=== PATIENT | male | born 1945 | race Caucasian/White ===

== ENCOUNTER 2016-04-14 07:50 | Emergency (ER) | payer MEDICARE ==
[~2016-04-14] VITALS: Ht 180.3 cm; Wt 65.0 kg
[~2016-04-14 07:50] MED LIST: CEFD300C PO; LORTA5 PO; OXYBXL5 PO; PRED10 PO; PROS5TAB2 PO; TAMS0.4C67 PO
--- NOTE | 2016-04-14 07:59 | PD ---
HPI Chief Complaint: shortness of breath Time Seen by Provider: 07:53 Travel History International Travel<30 days: No Contact w/Intl Traveler<30days: No Traveled to known affect area: No History of Present Illness HPI 71-year-old male complains of shortness of breath. Patient has history of COPD. Patient has been using albuterol nebulizer, albuterol inhaler and Brio at home. Patient states that he has chronic productive cough and is not new. Patient has increasing shortness of breath since this morning. Patient denies any fever chills. Patient denies any chest pain. Patient's energy conservation specialist Dr. Jaramillo. Patient has appointment with energy conservation specialist today. Patient denies any headache. Patient denies any chest pain. patient denies abdominal pain. Patient denies any nausea vomiting diarrhea. Patient arrived by EMS. PFS Past Medical History Hx Anticoagulant Therapy: No COPD: Yes Diabetes: No Diminished Hearing: No Genitourinary: Yes (ENLARGED PROSTATE ) Respiratory: Yes Immunizations Current: Yes Past Surgical History Joint Replacement: Yes (RIGHT HIP) Social History Alcohol Use: No (DENIES) Tobacco Use: Yes (0.5 ppd) Substance Use: No Allergies-Medications (Allergen,Severity, Reaction): Coded Allergies: No Known Allergies (Verified , 04/14/16) Reported Meds & Prescriptions Reported Meds & Active Scripts Active Reported Tylenol Extra Strength (Acetaminophen) 500 Mg Tab 500 Mg PO Q4-6H PRN Proair Hfa 8.5 GM Inh (Albuterol Sulfate) 90 Mcg/Act Aer 2 Puff INH Q4-6H PRN 108 mcg/actuation Breo Ellipta Inh (Fluticasone/Vilanterol) 200-25 Mcg/Act Inh 1 Puff INH DAILY Use daily at the same time. Flomax (Tamsulosin HCl) 0.4 Mg Cap 0.4 Mg PO HS Review of Systems General / Constitutional: No: Fever Eyes: No: Visual changes HENT: No: Headaches Cardiovascular: No: Chest Pain or Discomfort Respiratory: Positive: Cough, Shortness of Breath Gastrointestinal: No: Abdominal Pain Genitourinary: No: Dysuria Musculoskeletal: No: Pain Skin: No Rash Neurologic: No: Weakness Psychiatric: No: Depression Endocrine: No: Polydipsia Hematologic/Lymphatic: No: Easy Bruising Physical Exam Narrative GENERAL: Well-nourished, well-developed patient. SKIN: Warm and dry. HEAD: Normocephalic. EYES: No scleral icterus. No injection or drainage. NECK: Supple, trachea midline. No JVD or lymphadenopathy. CARDIOVASCULAR: Regular rate and rhythm without murmurs, gallops, or rubs. RESPIRATORY: Breath sounds equal bilaterally. No accessory muscle use. Patient has mild diffuse rhonchi. No wheezes. GASTROINTESTINAL: Abdomen soft, non-tender, nondistended. MUSCULOSKELETAL: No cyanosis, or edema. BACK: Nontender without obvious deformity. No CVA tenderness. Neurologic exam normal. Data Data Last Documented VS Vital Signs Date Time Temp Pulse Resp B/P Pulse Ox O2 Delivery O2 Flow Rate FiO2 04/14/16 08:09 95 Nasal Cannula 3 04/14/16 08:09 18 04/14/16 08:09 90 04/14/16 08:06 98.7 126/84 Orders Complete Blood Count With Diff (04/14/16 07:53) Comprehensive Metabolic Panel (04/14/16 07:53) B-Type Natriuretic Peptide (04/14/16 07:53) Arterial Blood Gas (Abg) (04/14/16 07:53) Iv Access Insert/Monitor (04/14/16 07:53) Electrocardiogram (04/14/16 07:53) Ecg Monitoring (04/14/16 07:53) Oximetry (04/14/16 07:53) Oxygen Administration (04/14/16 07:53) Chest, Single Ap (04/14/16 07:53) Sodium Chloride 0.9% Flush (Ns Flush) (04/14/16 08:00) Methylprednisolone So Succ Inj (Solumedr (04/14/16 08:00) Albuterol-Ipratropium Neb (Duoneb Neb) (04/14/16 08:00) Levofloxacin (Levaquin) (04/14/16 09:30) Labs Laboratory Tests Test 04/14/16 04/14/16 08:19 08:48 White Blood Count 10.2 TH/MM3 Red Blood Count 5.12 MIL/MM3 Hemoglobin 15.3 GM/DL Hematocrit 44.9 % Mean Corpuscular Volume 87.8 FL Mean Corpuscular Hemoglobin 29.9 PG Mean Corpuscular Hemoglobin 34.0 % Concent Red Cell Distribution Width 15.6 % Platelet Count 205 TH/MM3 Mean Platelet Volume 8.4 FL Neutrophils (%) (Auto) 84.7 % Lymphocytes (%) (Auto) 6.3 % Monocytes (%) (Auto) 7.3 % Eosinophils (%) (Auto) 1.2 % Basophils (%) (Auto) 0.5 % Neutrophils # (Auto) 8.6 TH/MM3 Lymphocytes # (Auto) 0.6 TH/MM3 Monocytes # (Auto) 0.7 TH/MM3 Eosinophils # (Auto) 0.1 TH/MM3 Basophils # (Auto) 0.1 TH/MM3 CBC Comment DIFF FINAL Differential Comment Sodium Level 139 MEQ/L Potassium Level 3.8 MEQ/L Chloride Level 105 MEQ/L Carbon Dioxide Level 28.9 MEQ/L Anion Gap 5 MEQ/L Blood Urea Nitrogen 24 MG/DL Creatinine 0.85 MG/DL Estimat Glomerular Filtration 89 ML/MIN Rate Random Glucose 86 MG/DL Calcium Level 8.4 MG/DL Total Bilirubin 0.4 MG/DL Aspartate Amino Transf 17 U/L (AST/SGOT) Alanine Aminotransferase 28 U/L (ALT/SGPT) Alkaline Phosphatase 66 U/L B-Type Natriuretic Peptide 12 PG/ML Total Protein 6.1 GM/DL Albumin 3.1 GM/DL Blood Gas Puncture Site RT RADIAL Blood Gas Patient Temperature 98.6 Blood Gas HCO3 26 mmol/L Blood Gas Base Excess 1.9 mmol/L Blood Gas Oxygen Saturation 93 % Arterial Blood pH 7.44 Arterial Blood Partial 39 mmHg Pressure CO2 Arterial Blood Partial 109 mmHG Pressure O2 Arterial Blood Oxygen Content 20.6 Vol % Arterial Blood 3.7 % Carboxyhemoglobin Arterial Blood Methemoglobin 2.1 % Blood Gas Hemoglobin 15.7 G/DL Oxygen Delivery Device NASAL CANNULA Blood Gas Liter Flow 2 L/M [facility] Medical Decision Making Medical Screen Exam Complete: Yes Emergency Medical Condition: Yes Interpretation(s) 8:53 AM. Chest x-ray shows hyperinflation with minimal right basilar density could be atelectasis or minimal infiltrate. CBC with WBC of 10.2. 84 neutrophil. 9:22 AM. ABG on 2 L nasal cannula, pH 7.44. PCO2 39. PO2 109. BUN 24. BNP 12. Differential Diagnosis Differential diagnosis including acute exacerbation COPD, bronchitis, pneumonia , PE, pneumothorax. Narrative Course 71-year-old male with shortness of breath. History of COPD. Albuterol with Atrovent unit dose treatment times one. Solu-Medrol 125 mg IV. Levaquin 750 mg by mouth given. Diagnosis Primary Impression: COPD with acute exacerbation Patient Instructions: General Instructions Additional Instructions: Continue with albuterol nebulizer treatment at home. Take medications as directed. Follow-up with energy conservation specialist this afternoon. Return if worse. Med/Other Pt SpecificInfo: Prescription(s) given Scripts Levofloxacin (Levaquin)750 Mg [id number] Mg PO DAILY #7 TAB Ref 0 Prov:Alvaro Peck MD 04/14/16 Prednisone 20 Mg Tab20 Mg PO BID #10 TAB Prov:Alvaro Peck MD 04/14/16 Disposition: 01 DISCHARGE HOME Condition: Stable Avlaro Peck MD Apr 14, 2016 07:59
[2016-04-14] MEDS ORDERED: SODIUM CHLORIDE 0.9% FLUSH 5 ML FLUSH IVF PRN (08:00)
[2016-04-14] MEDS ORDERED: RESP: ALBUTEROL 2.5 MG/IPRATROPIUM 0.5 MG NEB (SCH) INH ONE (08:00)
[2016-04-14] MEDS ORDERED: methylPREDNISolone SOD SUCC 125 MG/2 ML VIAL IVP ONE (08:00)
[2016-04-14 08:06] VITALS: BP 126/84; PULSE 90; RESP 18; TEMP 98.7; O2SAT 95
[2016-04-14 08:09] VITALS: RESP 18; O2SAT 95
--- NOTE | 2016-04-14 08:12 | RADRPT ---
EXAM DATE/TIME: 04/14/2016 07:53 [place] COMPARISON: No previous studies available for comparison. INDICATIONS : Short of breath. MEDICAL HISTORY : Chronic obstructive pulmonary disease. SURGICAL HISTORY : None. ENCOUNTER: Initial ACUITY: 1 day PAIN SCORE: 0/10 LOCATION: Bilateral chest FINDINGS: A single view of the chest demonstrates the lungs to be hyperaerated with minimal density right lower lobe. Left lung clear. The cardiomediastinal contours are unremarkable. Scoliosis of the spine. CONCLUSION: Hyperinflation with minimal right basilar density could be atelectasis or minimal infiltrate. Say Dooley MD on April 14, 2016 at 8:09 Board Certified Radiologist. This report was verified electronically.
[2016-04-14] MEDS ORDERED: TAMS5CAP PO (08:16)
[2016-04-14] MEDS ORDERED: ACET-703 PO (08:18)
[2016-04-14] MEDS ORDERED: FLUT1INH7 INH (08:18)
[2016-04-14] MEDS ORDERED: ALBUAER3 INH (08:18)
[2016-04-14 08:40] LABS: AUTOMATED NEUTROPHIL # 8.6 TH/MM3 (1.8-7.7); BASOPHIL # 0.1 TH/MM3 (0-0.2); BASOPHIL % 0.5 % (0.0-2.0); EOSINOPHIL # 0.1 TH/MM3 (0-0.4); EOSINOPHIL % 1.2 % (0.0-4.0); HEMATOCRIT 44.9 % (39.0-51.0); HEMO FLAGS DIFF FINAL; LYMPH % 6.3 % (9.0-44.0); LYMPHOCYTE # 0.6 TH/MM3 (1.0-4.8); MEAN CELL VOLUME 87.8 FL (80.0-100.0); MEAN CORPUSCULAR HEMOGLOBIN 29.9 PG (27.0-34.0); MONO % 7.3 % (0.0-8.0); NEUT % 84.7 % (16.0-70.0); PLATELET COUNT 205 TH/MM3 (150-450); RED BLOOD COUNT 5.12 MIL/MM3 (4.50-5.90); RED CELL DISTRIBUTION WIDTH 15.6 % (11.6-17.2); WHITE BLOOD COUNT 10.2 TH/MM3 (4.0-11.0)
[2016-04-14 08:58] LABS: BLOOD GAS BASE EXCESS 1.9 mmol/L (-2-2); BLOOD GAS CARBOXYHEMOGLOBIN 3.7 % (0-4); BLOOD GAS HCO3 26 mmol/L (22-26); BLOOD GAS METHEMOGLOBIN 2.1 % (0-2); BLOOD GAS O2 HGB SATURATION 93 % (90-100); BLOOD GAS OXYGEN CONTENT 20.6 Vol % (12.0-20.0); BLOOD GAS PCO2 39 mmHg (38-42); BLOOD GAS PO2 109 mmHG (61-120); BLOOD GAS TOTAL HGB 15.7 G/DL (12.0-16.0); TEMP CORR TO 98.6
[2016-04-14 08:59] LABS: CRITICAL VALUE NO; DRAW SITE RT RADIAL; LITER FLOW 2 L/M; NUMBER OF ARTERIAL PUNCTURES 1; OXYGEN DEVICE NASAL CANNULA; STAT YES
[2016-04-14 09:00] LABS: ALKALINE PHOSPHATASE 66 U/L (45-117); TOTAL BILIRUBIN ADULT 0.4 MG/DL (0.2-1.0)
[2016-04-14 09:11] LABS: ALT (GPT) 28 U/L (12-78); ANION GAP 5 MEQ/L (5-15); AST (GOT) 17 U/L (15-37); BICARBONATE 28.9 MEQ/L (21.0-32.0); CHLORIDE 105 MEQ/L (98-107); GLOMERULAR FILTRATION RATE 89 ML/MIN (>89); POTASSIUM 3.8 MEQ/L (3.5-5.1); SODIUM (NA) 139 MEQ/L (136-145)
[2016-04-14 09:17] LABS: BLOOD UREA NITROGEN 24 MG/DL (7-18)
[2016-04-14] MEDS ORDERED: LEVOFLOXACIN 750 MG TAB PO ONE (09:30)
[2016-04-14] MEDS ORDERED: LEVA750T PO (09:34)
[2016-04-14] MEDS ORDERED: PRED20 PO (09:34)
== END 2016-04-14 10:17 | disposition home or self-care (01) ==
LOC: NEPC 08:15
DX: J44.1 Chronic obstructive pulmonary disease with (acute) exacerbation (principal); F17.210 Nicotine dependence, cigarettes, uncomplicated
CPT/HCPCS: 36600; 71010; 80053; 82805; 83880; 85025; 94664; 96374; 99285; J2930